=== PATIENT | female | born 1985 | race Caucasian/White ===

== ENCOUNTER 2020-11-17 12:43 | Emergency (ER) | payer OTHER, SELFPAY ==
[2020-11-17 12:48] VITALS: BP 130/87; PULSE 103; RESP 22; TEMP 36.3; O2SAT 100; BMI 39.4
[2020-11-17 13:26] VITALS: BP 145/89; PULSE 99; TEMP 36.8; O2SAT 96
--- NOTE | 2020-11-17 14:15 | ED.PSYCH ---
HPI - Psych General Chief Complaint: Psychiatric Symptoms <Raquel Judd NP - Last Filed: 11/17/20 16:57> Stated Complaint: crisis <Raquel Judd NP - Last Filed: 11/17/20 16:57> Time Seen by Provider: 11/17/20 14:02 <Raquel Judd NP - Last Filed: 11/17/20 16:57> Source: patient <Raquel Judd NP - Last Filed: 11/17/20 16:57> Mode of arrival: ambulatory <Raquel Judd NP - Last Filed: 11/17/20 16:57> Limitations: no limitations <Raquel Judd NP - Last Filed: 11/17/20 16:57> History of Present Illness HPI Narrative: 35-year-old female with a past medical history depression, anxiety and PTSD here with complaints of depression, feeling like she wants to hurt herself but no plan. History of suicide attempt in the past. No homicidal ideations or hallucinations. No physical complaints. <Raquel Judd NP - Last Filed: 11/17/20 16:57> Related Data Home Medications: Home Medications Medication Instructions Recorded Confirmed albuterol sulfate 1 vial INHALATION Q4H PRN 11/17/20 11/17/20 albuterol sulfate 2 puff INHALATION Q4H PRN 11/17/20 11/17/20 ammonium lactate 1 appl TOPICAL BID 11/17/20 11/17/20 cyanocobalamin (vitamin B-12) 500 mcg PO DAILY 11/17/20 11/17/20 duloxetine 60 mg PO DAILY 11/17/20 11/17/20 ferrous sulfate 325 mg PO DAILY 11/17/20 11/17/20 fluticasone propionate 2 spray INTRANASAL DAILY 11/17/20 11/17/20 fluticasone propionate [Flovent 1 puff INHALATION BID 11/17/20 11/17/20 HFA] hydroxyzine HCl 25 mg PO TID PRN 11/17/20 11/17/20 lactulose 30 ml PO BEDTIME PRN 11/17/20 11/17/20 meclizine 25 mg PO TID PRN 11/17/20 11/17/20 methocarbamol 750 mg PO BEDTIME PRN 11/17/20 11/17/20 ondansetron HCl 4 mg PO Q8H PRN 11/17/20 11/17/20 <Raquel Judd NP - Last Filed: 11/17/20 16:57> Allergies/Adverse Reactions: Allergies Allergy/AdvReac Type Severity Reaction Status Date / Time No Known Allergies Allergy Unverified 03/11/20 19:49 [No Known Allergies*] <Raquel Judd NP - Last Filed: 11/17/20 16:57> Review of Systems Review of Systems: Yes all other systems are reviewed and are negative <Raquel Judd NP - Last Filed: 11/17/20 16:57> Constitutional: Constitutional: Reports no additional constitutional complaints, Denies body ache(s), Denies chills, Denies fever(s), Denies headache(s) and Denies weakness <MARCEL Huang Last Filed: 11/17/20 16:57> Eyes: Eyes: Reports no additional eye complaints and Denies change in vision <MARCEL Huang Last Filed: 11/17/20 16:57> ENT: Reports system reviewed and no additional complaints, except as documented, Denies dizziness, Denies headache(s), Denies nasal congestion, Denies nasal discharge and Denies neck pain <MARCEL Huang Last Filed: 11/17/20 16:57> Cardiovascular: Cardiovascular: Reports no additional cardiovascular complaints, Denies chest pain, Denies leg edema and Denies dyspnea <Raquel Judd NP - Last Filed: 11/17/20 16:57> Respiratory: Respiratory: Reports no additional respiratory complaints, Denies cough and Denies dyspnea <Raquel Judd NP - Last Filed: 11/17/20 16:57> Gastrointestinal: Gastrointestinal: Reports no additional gastrointestinal complaints, Denies abdominal pain, Denies diarrhea, Denies nausea and Denies vomiting <MARCEL Huang Last Filed: 11/17/20 16:57> Genitourinary: Genitourinary: Reports no additional female genitourinary complaints and Denies urinary incontinence <Raquel Judd NP - Last Filed: 11/17/20 16:57> Musculoskeletal: Musculoskeletal: Reports no additional musculoskeletal complaints, Denies back pain, Denies arthralgias, Denies joint swelling, Denies neck pain, Denies numbness and Denies tingling <Raquel Judd NP - Last Filed: 11/17/20 16:57> Integumentary/Breasts: Skin/Breast: Reports system reviewed and no additional complaints, except as docu and Denies rash <Raquel Judd NP - Last Filed: 11/17/20 16:57> Neurologic: Reports system reviewed and no additional complaints, except as documented, Denies Abnormal speech present, Denies dizziness, Denies headache(s), Denies numbness, Denies tingling and Denies weakness <Raquel Judd NP - Last Filed: 11/17/20 16:57> Psychiatric: Psychiatric: Reports anxiety, Reports depression and Reports suicidal ideation <Raquel Judd NP - Last Filed: 11/17/20 16:57> [facility] Past Medical History Attestation statement: The following information was validated with the patient. <Raquel Judd NP - Last Filed: 11/17/20 16:57> Source: old records reviewed and nursing notes reviewed <Raquel Judd NP - Last Filed: 11/17/20 16:57> Social History Social History: Social History Advance Directives: Yes Advance Directives Information Provided: Yes Advance Directives on File: No Patient : No <Raquel Judd NP - Last Filed: 11/17/20 16:57> Physical Exam Vital Signs: Vital Signs: Last Vital Signs Temp 98.7 F 11/17/20 19:48 Pulse 80 11/17/20 19:48 Resp 12 11/17/20 19:48 BP 123/61 11/17/20 19:48 Pulse Ox 100 11/17/20 19:48 Body Mass Index 39.4 <Raquel Judd NP - Last Filed: 11/17/20 16:57> Vital Signs: Last Vital Signs Temp 98.7 F 11/17/20 19:48 Pulse 80 11/17/20 19:48 Resp 12 11/17/20 19:48 BP 123/61 11/17/20 19:48 Pulse Ox 100 11/17/20 19:48 Body Mass Index 39.4 <Ria Chavez MD - Last Filed: 11/18/20 02:28> Const: General: cooperative, healthy appearing, comfortable and no acute distress <Raquel Judd NP - Last Filed: 11/17/20 16:57> Orientation/consciousness: patient oriented x3 <Raquel Judd NP - Last Filed: 11/17/20 16:57> Limitations: no limitations <Raquel Judd NP - Last Filed: 11/17/20 16:57> HENMT: Head: Yes normal to inspection <Raquel Judd NP - Last Filed: 11/17/20 16:57> Ears: hearing grossly normal bilaterally <Raquel Judd NP - Last Filed: 11/17/20 16:57> General nose exam: Normal external nose present <Raquel Judd NP - Last Filed: 11/17/20 16:57> Face and sinus: Yes normal facial exam <Raquel Judd NP - Last Filed: 11/17/20 16:57> Mouth: Normal oral and palatal mucosa present <Raquel Judd NP - Last Filed: 11/17/20 16:57> Throat: Yes posterior oropharynx normal <Raquel Judd NP - Last Filed: 11/17/20 16:57> Eyes: General: appearance normal, both eyes and all related structures <Raquel Judd NP - Last Filed: 11/17/20 16:57> Pupils: Equal, round and reactive pupils present <Raquel Judd NP - Last Filed: 11/17/20 16:57> Neck: Neck: Yes normal visual inspection <Raquel Judd NP - Last Filed: 11/17/20 16:57> Chest: Chest palpation & inspection: normal inspection of the chest <Raquel Judd NP - Last Filed: 11/17/20 16:57> Resp: Effort & Inspection: normal respiratory effort <Raquel Judd NP - Last Filed: 11/17/20 16:57> Auscultation: clear to auscultation bilaterally <Raquel Judd NP - Last Filed: 11/17/20 16:57> Cardio: Rate: regular rate <Raquel Judd NP - Last Filed: 11/17/20 16:57> Rhythm: regular rhythm <Raquel Judd NP - Last Filed: 11/17/20 16:57> Peripheral pulses: Peripheral pulses 2+ throughout <Raquel Judd NP - Last Filed: 11/17/20 16:57> GI: Inspection: Yes normal to inspection <Raquel Judd NP - Last Filed: 11/17/20 16:57> Palpation (GI): Soft to palpation and nontender <Raquel Judd NP - Last Filed: 11/17/20 16:57> Auscultation: normal bowel sounds <Raquel Judd NP - Last Filed: 11/17/20 16:57> Back/Spine/Pelvis: Thoracic/Lumbar Spine: thoracic and lumbar spine normal to inspection <Raquel Judd NP - Last Filed: 11/17/20 16:57> Skin: General skin exam: no rashes or lesions noted <Raquel Judd NP - Last Filed: 11/17/20 16:57> Neuro: General: patient oriented x3, no focal motor deficits and normal sensation to monofilament <Raquel Judd NP - Last Filed: 11/17/20 16:57> Cranial nerves: Yes Equal, round and reactive pupils present <Raquel Judd NP - Last Filed: 11/17/20 16:57> Cognition (Neuro): normal cognition <Raquel Judd NP - Last Filed: 11/17/20 16:57> Speech: No Abnormal speech present <Raquel Judd NP - Last Filed: 11/17/20 16:57> Gait exam (Neuro): Normal gait present <Raquel Judd NP - Last Filed: 11/17/20 16:57> Motor exam (neuro): 5/5 motor strength present throughout <Raquel Judd NP - Last Filed: 11/17/20 16:57> Extrem: General: Yes normal to inspection, Yes no pedal edema and Yes no calf tenderness <Raquel Judd NP - Last Filed: 11/17/20 16:57> Course Course Course Narrative: 35-year-old female here with depression, suicidal thoughts. No physical complaints. No concern for acute ingestion or trauma. Will require labs, drug screen, COVID screen and [facility] evaluation 1600-patient placed in physician observation pending a crisis evaluation 1700-Sign out to Vasu GRIMALDO pending BHN evaluation. <Raquel Judd NP - Last Filed: 11/17/20 16:57> BHN: declined [facility], inpatient. Willing at home partial hospitalization. discharge in the morning. Hx of bipolar one. <Ria Chavez MD - Last Filed: 11/18/20 02:28> MDM - Psych Medical Records Attestation: I reviewed the patient's medical records. <Raquel Judd NP - Last Filed: 11/17/20 16:57> Lab Data Attestation: I reviewed the patient's lab results. <Raquel Judd NP - Last Filed: 11/17/20 16:57> Result diagrams: : 11/17/20 15:09 11/17/20 15:09 <Raquel Judd NP - Last Filed: 11/17/20 16:57> Labs: Lab Results 11/17/20 11/17/20 11/17/20 Range/Units 15:08 15:09 15:09 WBC 7.6 (4.8-10.8) X10*3/uL RBC 4.47 (4.20-5.50) X10*6/uL Hgb 13.1 (12.0-16.0) g/dl Hct 40.7 (37-47) % MCV 91.1 (80-98) fL MCH 29.3 (27.0-33.0) pg MCHC 32.2 (31.0-35.0) g/dl RDW 14.6 (11.0-16.0) % Plt Count 271 (160-400) X10*3/uL MPV 10.2 (9.4-12.3) fL Immature Gran % (Auto) 0.3 (0.0-0.4) % Neut % (Auto) 62.6 (45-73) % Lymph % (Auto) 27.2 (20-40) % [place] % (Auto) 4.6 (2-11) % Eos % (Auto) 4.8 H (0-4) % Baso % (Auto) 0.5 (0-2) % Lymph # (Auto) 2.1 (1.2-4.9) X10*3/uL [place] # (Auto) 0.4 (0.1-1.2) X10*3/uL Eos # (Auto) 0.4 (0.0-0.4) X10*3/uL Baso # (Auto) 0.0 (0.0-0.2) X10*3/uL Abs Immat Gran (auto) 0.02 (0.00-0.03) X10*3/uL Absolute Neuts (auto) 4.7 (2.0-8.3) X10*3/uL Absolute Nucleated RBC 0.000 (0.0-0.012) X10*3/uL Nucleated RBC % (auto) 0.0 (0.0-0.2) /100WBC Sodium 138 (135-145) mmol/L Potassium 4.2 (3.3-5.1) mmol/L Chloride 104 (96-108) mmol/L Carbon Dioxide 27 (22-29) mmol/L Anion Gap 11 L (12-20) BUN 8 L (9-16) mg/dL Creatinine 0.65 (0.5-1.4) mg/dL Estim Creat Clear Calc 140.8 Estimated GFR > 60 Random Glucose 95 (60-115) mg/dL Calcium 9.3 (8.4-10.2) mg/dL Total Bilirubin 0.2 (0.0-1.0) mg/dL Direct Bilirubin 0.2 (0.0-0.5) mg/dL AST 18 (5-31) U/L ALT 10 (0-31) U/L Alkaline Phosphatase 82 (39-117) U/L Total Protein 7.2 (6.5-8.0) g/dL Albumin 4.3 (3.5-5.0) g/dL Urine Test (NEGATIVE) Urine Opiates Screen (Not Detect) Ur Barbiturates Screen (Not Detect) Ur Phencyclidine Scrn (Not Detect) Ur Amphetamines Screen (Not Detect) U Benzodiazepines Scrn (Not Detect) Urine Cocaine Screen (Not Detect) U Marijuana (THC) Screen (Not Detect) Ethyl Alcohol mg/dL COVID-19 ([facility]) Negative (Negative) COVID-19 Clin Com See Note 11/17/20 11/17/20 11/17/20 Range/Units 15:09 15:09 15:09 WBC (4.8-10.8) X10*3/uL RBC (4.20-5.50) X10*6/uL Hgb (12.0-16.0) g/dl Hct (37-47) % MCV (80-98) fL MCH (27.0-33.0) pg MCHC (31.0-35.0) g/dl RDW (11.0-16.0) % Plt Count (160-400) X10*3/uL MPV (9.4-12.3) fL Immature Gran % (Auto) (0.0-0.4) % Neut % (Auto) (45-73) % Lymph % (Auto) (20-40) % [place] % (Auto) (2-11) % Eos % (Auto) (0-4) % Baso % (Auto) (0-2) % Lymph # (Auto) (1.2-4.9) X10*3/uL [place] # (Auto) (0.1-1.2) X10*3/uL Eos # (Auto) (0.0-0.4) X10*3/uL Baso # (Auto) (0.0-0.2) X10*3/uL Abs Immat Gran (auto) (0.00-0.03) X10*3/uL Absolute Neuts (auto) (2.0-8.3) X10*3/uL Absolute Nucleated RBC (0.0-0.012) X10*3/uL Nucleated RBC % (auto) (0.0-0.2) /100WBC Sodium (135-145) mmol/L Potassium (3.3-5.1) mmol/L Chloride (96-108) mmol/L Carbon Dioxide (22-29) mmol/L Anion Gap (12-20) BUN (9-16) mg/dL Creatinine (0.5-1.4) mg/dL Estim Creat Clear Calc Estimated GFR Random Glucose (60-115) mg/dL Calcium (8.4-10.2) mg/dL Total Bilirubin (0.0-1.0) mg/dL Direct Bilirubin (0.0-0.5) mg/dL AST (5-31) U/L ALT (0-31) U/L Alkaline Phosphatase (39-117) U/L Total Protein (6.5-8.0) g/dL Albumin (3.5-5.0) g/dL Urine Test NEGATIVE (NEGATIVE) Urine Opiates Screen Not Detected (Not Detect) Ur Barbiturates Screen Not Detected (Not Detect) Ur Phencyclidine Scrn Not Detected (Not Detect) Ur Amphetamines Screen Not Detected (Not Detect) U Benzodiazepines Scrn Not Detected (Not Detect) Urine Cocaine Screen Not Detected (Not Detect) U Marijuana (THC) Screen Not Detected (Not Detect) Ethyl Alcohol < 10 mg/dL COVID-19 ([facility]) (Negative) COVID-19 Clin Com <Raquel Judd, [employer] - Last Filed: 11/17/20 16:57> Lab Results 11/17/20 11/17/20 11/17/20 Range/Units 15:08 15:09 15:09 WBC 7.6 (4.8-10.8) X10*3/uL RBC 4.47 (4.20-5.50) X10*6/uL Hgb 13.1 (12.0-16.0) g/dl Hct 40.7 (37-47) % MCV 91.1 (80-98) fL MCH 29.3 (27.0-33.0) pg MCHC 32.2 (31.0-35.0) g/dl RDW 14.6 (11.0-16.0) % Plt Count 271 (160-400) X10*3/uL MPV 10.2 (9.4-12.3) fL Immature Gran % (Auto) 0.3 (0.0-0.4) % Neut % (Auto) 62.6 (45-73) % Lymph % (Auto) 27.2 (20-40) % [place] % (Auto) 4.6 (2-11) % Eos % (Auto) 4.8 H (0-4) % Baso % (Auto) 0.5 (0-2) % Lymph # (Auto) 2.1 (1.2-4.9) X10*3/uL [place] # (Auto) 0.4 (0.1-1.2) X10*3/uL Eos # (Auto) 0.4 (0.0-0.4) X10*3/uL Baso # (Auto) 0.0 (0.0-0.2) X10*3/uL Abs Immat Gran (auto) 0.02 (0.00-0.03) X10*3/uL Absolute Neuts (auto) 4.7 (2.0-8.3) X10*3/uL Absolute Nucleated RBC 0.000 (0.0-0.012) X10*3/uL Nucleated RBC % (auto) 0.0 (0.0-0.2) /100WBC Sodium 138 (135-145) mmol/L Potassium 4.2 (3.3-5.1) mmol/L Chloride 104 (96-108) mmol/L Carbon Dioxide 27 (22-29) mmol/L Anion Gap 11 L (12-20) BUN 8 L (9-16) mg/dL Creatinine 0.65 (0.5-1.4) mg/dL Estim Creat Clear Calc 140.8 Estimated GFR > 60 Random Glucose 95 (60-115) mg/dL Calcium 9.3 (8.4-10.2) mg/dL Total Bilirubin 0.2 (0.0-1.0) mg/dL Direct Bilirubin 0.2 (0.0-0.5) mg/dL AST 18 (5-31) U/L ALT 10 (0-31) U/L Alkaline Phosphatase 82 (39-117) U/L Total Protein 7.2 (6.5-8.0) g/dL Albumin 4.3 (3.5-5.0) g/dL Urine Test (NEGATIVE) Urine Opiates Screen (Not Detect) Ur Barbiturates Screen (Not Detect) Ur Phencyclidine Scrn (Not Detect) Ur Amphetamines Screen (Not Detect) U Benzodiazepines Scrn (Not Detect) Urine Cocaine Screen (Not Detect) U Marijuana (THC) Screen (Not Detect) Ethyl Alcohol mg/dL COVID-19 ([facility]) Negative (Negative) COVID-19 Clin Com See Note 11/17/20 11/17/20 11/17/20 Range/Units 15:09 15:09 15:09 WBC (4.8-10.8) X10*3/uL RBC (4.20-5.50) X10*6/uL Hgb (12.0-16.0) g/dl Hct (37-47) % MCV (80-98) fL MCH (27.0-33.0) pg MCHC (31.0-35.0) g/dl RDW (11.0-16.0) % Plt Count (160-400) X10*3/uL MPV (9.4-12.3) fL Immature Gran % (Auto) (0.0-0.4) % Neut % (Auto) (45-73) % Lymph % (Auto) (20-40) % [place] % (Auto) (2-11) % Eos % (Auto) (0-4) % Baso % (Auto) (0-2) % Lymph # (Auto) (1.2-4.9) X10*3/uL [place] # (Auto) (0.1-1.2) X10*3/uL Eos # (Auto) (0.0-0.4) X10*3/uL Baso # (Auto) (0.0-0.2) X10*3/uL Abs Immat Gran (auto) (0.00-0.03) X10*3/uL Absolute Neuts (auto) (2.0-8.3) X10*3/uL Absolute Nucleated RBC (0.0-0.012) X10*3/uL Nucleated RBC % (auto) (0.0-0.2) /100WBC Sodium (135-145) mmol/L Potassium (3.3-5.1) mmol/L Chloride (96-108) mmol/L Carbon Dioxide (22-29) mmol/L Anion Gap (12-20) BUN (9-16) mg/dL Creatinine (0.5-1.4) mg/dL Estim Creat Clear Calc Estimated GFR Random Glucose (60-115) mg/dL Calcium (8.4-10.2) mg/dL Total Bilirubin (0.0-1.0) mg/dL Direct Bilirubin (0.0-0.5) mg/dL AST (5-31) U/L ALT (0-31) U/L Alkaline Phosphatase (39-117) U/L Total Protein (6.5-8.0) g/dL Albumin (3.5-5.0) g/dL Urine Test NEGATIVE (NEGATIVE) Urine Opiates Screen Not Detected (Not Detect) Ur Barbiturates Screen Not Detected (Not Detect) Ur Phencyclidine Scrn Not Detected (Not Detect) Ur Amphetamines Screen Not Detected (Not Detect) U Benzodiazepines Scrn Not Detected (Not Detect) Urine Cocaine Screen Not Detected (Not Detect) U Marijuana (THC) Screen Not Detected (Not Detect) Ethyl Alcohol < 10 mg/dL COVID-19 ([facility]) (Negative) COVID-19 Clin Com <Ria Chavez MD - Last Filed: 11/18/20 02:28> Discharge Plan Discharge Clinical Impression: Depression, Acute anxiety, Acute post-traumatic stress disorder <Raquel Judd NP - Last Filed: 11/17/20 16:57> Patient Disposition: Home, Self-Care <Raquel Judd NP - Last Filed: 11/17/20 16:57> Instructions: Bipolar Disorder (ED) <Raquel Judd NP - Last Filed: 11/17/20 16:57> Additional Instructions: [facility] follow[facility] with [facility]. Please follow-up with your primary care physician tomorrow. If you have any worsening or new symptoms, please return to the emergency room or call 911 <Raquel Judd NP - Last Filed: 11/17/20 16:57> Prescriptions: No Action albuterol sulfate 2.5 mg /3 mL (0.083 %) solution for nebulization 1 vial inhalation Q4H PRN (Reason: wheezing) RF: 0 ondansetron HCl 4 mg tablet 4 mg PO Q8H PRN (Reason: nausea) RF: 0 methocarbamol 750 mg tablet 750 mg PO BEDTIME PRN (Reason: muscle pain) RF: 0 cyanocobalamin (vitamin B-12) 500 mcg tablet 500 mcg PO DAILY RF: 0 meclizine 25 mg tablet 25 mg PO TID PRN (Reason: vertigo) RF: 0 ferrous sulfate 325 mg (65 mg iron) tablet 325 mg PO DAILY RF: 0 hydroxyzine HCl 25 mg tablet 25 mg PO TID PRN (Reason: anxiety) RF: 0 fluticasone propionate 50 mcg/actuation spray,suspension 2 spray intranasal DAILY RF: 0 Flovent HFA 110 mcg/actuation HFA aerosol inhaler 1 puff inhalation BID RF: 0 duloxetine 60 mg capsule,delayed release(DR/EC) 60 mg PO DAILY RF: 0 lactulose 10 gram/15 mL solution 30 ml PO BEDTIME PRN (Reason: constipation) RF: 0 ammonium lactate 12 % cream 1 appl topical BID RF: 0 albuterol sulfate 90 mcg/actuation HFA aerosol inhaler 2 puff inhalation Q4H PRN (Reason: wheezing) RF: 0 <Raquel Judd [employer] - Last Filed: 11/17/20 16:57>
--- NOTE | 2020-11-17 14:56 | HE.PHANOTE ---
Pharmacy has completed the medication reconciliation and there were no significant medication issues requiring provider attention.
[2020-11-17 15:15] LABS: MANUAL DIFF FLAG NO
[2020-11-17 15:21] LABS: Basophils Percent Auto 0.5 % (0-2); Eosinophils Absolute Auto 0.4 X10*3/uL (0.0-0.4); Eosinophils Percent Auto 4.8 % (0-4); Hematocrit 40.7 % (37-47); Hemoglobin 13.1 g/dl (12.0-16.0); Imm Gran Abs Auto 0.02 X10*3/uL (0.00-0.03); Imm Gran Pct Auto 0.3 % (0.0-0.4); Lymphocytes Absolute Auto 2.1 X10*3/uL (1.2-4.9); Lymphocytes Percent Auto 27.2 % (20-40); Mean Corpuscular HGB Conc 32.2 g/dl (31.0-35.0); Mean Corpuscular Hemoglobin 29.3 pg (27.0-33.0); Mean Corpuscular Volume 91.1 fL (80-98); Mean Platelet Volume 10.2 fL (9.4-12.3); Monocytes Absolute Auto 0.4 X10*3/uL (0.1-1.2); Monocytes Percent Auto 4.6 % (2-11); Neutrophils Absolute Auto 4.7 X10*3/uL (2.0-8.3); Neutrophils Percent Auto 62.6 % (45-73); Platelet Count 271 X10*3/uL (160-400); Red Blood Count 4.47 X10*6/uL (4.20-5.50); Red Cell Distribution Width 14.6 % (11.0-16.0); White Blood Count 7.6 X10*3/uL (4.8-10.8)
--- NOTE | 2020-11-17 15:23 | PC.NURSE ---
Report received. PT currently sitting in her room, calm and cooperative. PT waiting to be seen by N.
[2020-11-17 15:24] LABS: UPreg QC Valid YES; Urine Pregnancy NEGATIVE (NEGATIVE)
[2020-11-17 15:39] LABS: Ethanol < 10 mg/dL
[2020-11-17 15:42] LABS: Alanine Aminotransferase 10 U/L (0-31); Albumin Level 4.3 g/dL (3.5-5.0); Alkaline Phosphatase 82 U/L (39-117); Anion Gap 11 (12-20); Aspartate Amino Transferase 18 U/L (5-31); Bilirubin Direct 0.2 mg/dL (0.0-0.5); Bilirubin Total 0.2 mg/dL (0.0-1.0); Blood Urea Nitrogen 8 mg/dL (9-16); Calcium 9.3 mg/dL (8.4-10.2); Carbon Dioxide 27 mmol/L (22-29); Chloride 104 mmol/L (96-108); Creatinine Clr Calc Pharmacy 140.8; Estimated Glomerular Filt Rate > 60; Glucose Random 95 mg/dL (60-115); Potassium 4.2 mmol/L (3.3-5.1); Sodium 138 mmol/L (135-145); Total Protein 7.2 g/dL (6.5-8.0)
[2020-11-17 15:43] LABS: Amphetamine Screen Urine Not Detected (Not Detect); Barbiturates, Urine Not Detected (Not Detect); Benzodiazepines Screen Urine Not Detected (Not Detect); Cannabinoid Screen Urine Not Detected (Not Detect); Cocaine Screen Urine Not Detected (Not Detect); Opiate Screen Urine Not Detected (Not Detect); Phencyclidine Screen Urine Not Detected (Not Detect)
[2020-11-17 15:47] LABS: COVID-19 Test Negative (Negative)
[2020-11-17] MEDS: Acetaminophen 325 MG TABLET 650 MG PO (17:11)
--- NOTE | 2020-11-17 19:42 | PC.NURSE ---
Patint calm and quiet, sitting in chair in her room, watching TV, VSS, no distress reported, BHN called/spoke with Sylvia/confirmed receipt of referral, no clinician available to assess the patient at this time per BHN, patient may be seen on overnight shift, will continue to monitor.
[2020-11-17 19:48] VITALS: BP 123/61; PULSE 80; RESP 12; TEMP 37.1; O2SAT 100
[2020-11-17] MEDS: Ibuprofen 800 MG TABLET PO (23:31)
--- NOTE | 2020-11-18 00:47 | PC.NURSE ---
BHN at bedside, patient seems engaged.
[2020-11-18] MEDS: traZODone HCL 50 MG TABLET PO (02:32)
[2020-11-18 02:49] VITALS: BP 104/53; PULSE 68; RESP 16; TEMP 36.3; O2SAT 99
--- NOTE | 2020-11-18 03:07 | PC.NURSE ---
AGUSTIN completed assessment, disposition is discharge AM with plan to F/U with partial hospitalization program. Provider and patient aware.
--- NOTE | 2020-11-18 07:02 | PC.NURSE ---
Report from Jonathan SARMIENTO. Plan for d/c with to f/u with partial. Pt sleeping at this time. AMBROSE.
== END 2020-11-18 08:52 | disposition home or self-care (01) ==
PROVIDERS: Nurse Practitioner Family; Emergency Provider Emergency Medicine
DX: F33.1 Major depressive disorder, recurrent, moderate (principal); R45.851 Suicidal ideations; F41.1 Generalized anxiety disorder; F43.0 Acute stress reaction; Z20.822 Contact with and (suspected) exposure to COVID-19; Z79.899 Other long term (current) drug therapy
CPT/HCPCS: 36415; 80048; 80076; 80307; 80320; 81025; 85025; 87635; 99285